=== PATIENT | male | born 1980 | race Caucasian/White ===

== ENCOUNTER 2018-04-23 15:58 | Emergency (ER) | payer OTHER ==
[2018-04-23 16:08] VITALS: O2SAT 100
--- NOTE | 2018-04-23 17:35 | ED PDOC ---
HPI: Headache Chief Complaint (Nursing): Headache Chief Complaint (Provider): Headache History Per: Patient History/Exam Limitations: no limitations Onset/Duration Of Symptoms: Hrs Current Symptoms Are (Timing): Still Present Additional Complaint(s): 38 year old male, with no significant past medical history, states that today at work he reportedly did some weight lifting in the office. Shortly thereafter , while sitting at his desk, patient developed sudden onset of lightheadedness along with transient numbness to right upper extremity while sitting on the toilet. When patient got up from the toilet, patient states symptoms rapidly dissipated with a total duration of approximately 15 seconds. Patient reports he feels like he was "drooling" during the 15 seconds. Patient now reports no residual symptoms. At the time of they lightheadedness, patient also had palpitations. Denies chest pain per say. Patient denies having had any previous such episodes. Additionally, patient denies cardiac history, elicit drug use, alcohol abuse, and smoking. Past Medical History Reviewed: Historical Data, Nursing Documentation, Vital Signs Vital Signs: Last Vital Signs Temp 98.1 F 04/23/18 16:03 Pulse 72 04/23/18 16:03 Resp 16 04/23/18 16:03 BP 148/93 H 04/23/18 16:03 Pulse Ox 100 04/23/18 16:03 - Medical History PMH: No Chronic Diseases - Surgical History Surgical History: No Surg Hx - Family History Family History: States: Unknown Family Hx - Social History Current smoker - smoking cessation education provided: No Alcohol: None Drugs: Denies - Allergies Allergies/Adverse Reactions: Allergies Allergy/AdvReac Type Severity Reaction Status Date / Time No Known Allergies Allergy Verified 04/23/18 16:03 Review of Systems ROS Statement: Except As Marked, All Systems Reviewed And Found Negative Cardiovascular: Positive for: Palpitations. Negative for: Chest Pain Neurological: Positive for: Numbness (transient numbness to right upper extremty ), Other (Lightheadedness ) Physical Exam - Reviewed Nursing Documentation Reviewed: Yes Vital Signs Reviewed: Yes - Physical Exam Appears: Positive for: Non-toxic, No Acute Distress (GCS of 15) Head Exam: Positive for: ATRAUMATIC, NORMOCEPHALIC Eye Exam: Positive for: Normal appearance, EOMI, PERRL Neck: Positive for: Normal, Supple (without JVD) Pulses-Dorsalis Pedis (L): 2+ Pulses-Dorsalis Pedis (R): 2+ Extremity: Positive for: Other. Negative for: Calf Tenderness, Swelling Neurologic/Psych: Positive for: chemistry specialist II-XII, Other (Motor strength: 5/5 ; Finger to nose, heel to gaitan intact.). Negative for: Motor/Sensory Deficits - Laboratory Results Result Diagrams: 04/23/18 17:00 04/23/18 17:00 - ECG ECG Rhythm: Positive for: Sinus Rhythm Rate: 82 (Voltage crter for LVH, otherwise negative ) O2 Sat by Pulse Oximetry: 100 (RA) Pulse Ox Interpretation: Normal Medical Decision Making Medical Decision Making: Time: 1700 Impression: Palpitations, vasal vagal episode with transient paresthesias. Plan: -- To check routine labs, place on property assessment monitor, do screening exam for DVT and CT, then re-evaluate -- Head CT w/o contrast -- CMP -- Troponin I -- CBC with differentials -- D Dimer [COAG] -- Chest Portable XRay -- IV Insertion -- Urinalysis Time: 1836 Plan: -- Urine Culture -- Urine Drug Screen Time: 1853 -- All labs and scans resulted normal including D Dimer. No arrythmias, no reccurence of symptoms. Patient will be discharged. Scribe Attestation: Documented by Hunter Carter, acting as a scribe Dr. Marcelle Chaney. Provider Scribe Attestation: All medical record entries made by the Scribe were at my direction and personally dictated by me. I have reviewed the chart and agree that the record accurately reflects my personal performance of the history, physical exam, medical decision making, and the department course for this patient. I have also personally directed, reviewed, and agree with the discharge instructions and disposition. Disposition - Clinical Impression Clinical Impression: Vaso vagal episode - Disposition Referrals: [facility] [Outside] Disposition: Routine/Home Disposition Time: 21:35 Condition: FAIR Instructions: Vasovagal Response, Near Fainting Forms: [employer] (Italian) Print Language: TELUGU
[2018-04-23 17:37] LABS: ALB/GLOB RATIO 1.6 (1.0-2.1); ALBUMIN 4.2 g/dL (3.5-5.0); ALT/SGPT 29 U/L (21-72); AST/SGOT 31 U/L (17-59); BLOOD UREA NITROGEN 18 mg/dl (9-20); CALCIUM 9.7 mg/dL (8.4-10.2); GFR AFRICAN-AMERICAN > 60; GFR NON-AFRICAN AMERICAN > 60
[2018-04-23 17:51] LABS: BASO % 0.6 % (0.0-2.0); EOS # 0.1 K/uL (0.0-0.7); EOS % 2.1 % (0.0-4.0); HEMOGLOBIN 13.7 g/dL (12.0-18.0); LYMPH # 1.2 K/uL (1.0-4.3); LYMPH % 26.7 % (20.0-40.0); MEAN CELL VOLUME 89.3 fl (80.0-94.0); MEAN CORPUSCULAR HEMOGLOBIN 30.8 pg (27.0-31.0); MEAN CORPUSCULAR HGB CONC 34.5 g/dL (33.0-37.0); MEAN PLATELET VOLUME 8.9 fl (7.2-11.7); MONO # 0.4 K/uL (0.0-0.8); MONO % 8.5 % (0.0-10.0); NEUT # 2.9 K/uL (1.8-7.0); NEUT % 62.1 % (50.0-75.0); NRBC % 0.1 % (0.0-0.0); RBC 4.46 Mil/uL (4.40-5.90); RED CELL DISTRIBUTION WIDTH 12.8 % (11.5-14.5); WHITE BLOOD COUNT 4.7 K/uL (4.8-10.8)
[2018-04-23 18:07] LABS: URINE BACTERIA RARE (<OCC); URINE BILIRUBIN NEGATIVE (NEGATIVE); URINE BLOOD NEGATIVE (NEGATIVE); URINE CLARITY CLEAR (Clear); URINE COLOR YELLOW (YELLOW); URINE GLUCOSE (UA) NEG (Normal); URINE LEUKOCYTE ESTERASE TRACE Leu/uL (Negative); URINE PROTEIN 30 mg/dL (NEGATIVE); URINE UROBILINOGEN 0.2-1.0 mg/dL (0.2-1.0)
[2018-04-23 19:02] VITALS: BP 138/82; RESP 18; TEMP 98
[2018-04-23 19:04] LABS: BARBITURATES, UR NEGATIVE (NEGATIVE); BENZODIAZEPINES, UR NEGATIVE (NEGATIVE); OPIATES, UR NEGATIVE (NEGATIVE); PHENCYCLIDINE, UR NEGATIVE (NEGATIVE)
--- NOTE | 2018-04-23 19:20 | RAD ---
HISTORY: Sepsis Patient COMPARISON: No prior. FINDINGS: LUNGS: No active pulmonary disease. PLEURA: No significant pleural effusion identified, no pneumothorax apparent. CARDIOVASCULAR: Normal. OSSEOUS STRUCTURES: No significant abnormalities. VISUALIZED UPPER ABDOMEN: Normal. OTHER FINDINGS: None. IMPRESSION: No acute cardiopulmonary disease appreciated.
[2018-04-23 21:35] VITALS: PULSE 82
== END 2018-04-23 19:00 | disposition home or self-care (01) ==
LOC: H.ER 15:58
DX: R42 Dizziness and giddiness (principal)